=== PATIENT | male | born 1975 | race Caucasian/White ===

== ENCOUNTER 2016-08-09 10:21 | Emergency (ER) | payer OTHER ==
[~2016-08-09 10:21] MED LIST: BENTYL20 MG PO; FLEXERIL10 MG PO; NO MEDICATIONS; PHENERGAN DM; PHENERGAN PO; VOLTAREN75 MG PO
== END 2016-08-09 10:50 | disposition home or self-care (01) ==
LOC: SED 10:21
DX: M77.31 Calcaneal spur, right foot (principal); I10 Essential (primary) hypertension
CPT/HCPCS: 99282

== ENCOUNTER 2016-08-10 09:42 | Emergency (ER) | payer OTHER | END 2016-08-10 10:02 | disposition home or self-care (01) | LOC: SED 09:42 | DX: M77.31 Calcaneal spur, right foot (principal); I10 Essential (primary) hypertension; K57.92 Diverticulitis of intestine, part unspecified, without perforation or abscess without bleeding; Z98.890 Other specified postprocedural states | CPT/HCPCS: 99282 ==

== ENCOUNTER 2016-08-15 09:23 | Emergency (ER) | payer MEDICARE | END 2016-08-15 10:00 | disposition home or self-care (01) | LOC: SED 09:23 | DX: K52.9 Noninfective gastroenteritis and colitis, unspecified (principal); Z90.49 Acquired absence of other specified parts of digestive tract | CPT/HCPCS: 99282 ==

== ENCOUNTER 2016-08-16 09:41 | Emergency (ER) | payer OTHER | END 2016-08-16 10:05 | disposition home or self-care (01) | LOC: SED 09:41 | DX: K52.9 Noninfective gastroenteritis and colitis, unspecified (principal); Z90.49 Acquired absence of other specified parts of digestive tract | CPT/HCPCS: 99282 ==

== ENCOUNTER 2016-09-19 08:56 | Emergency (ER) | payer OTHER | END 2016-09-19 09:21 | disposition home or self-care (01) | LOC: SED 08:56 | DX: R19.7 Diarrhea, unspecified (principal); Z90.89 Acquired absence of other organs | CPT/HCPCS: 99283 ==

== ENCOUNTER 2016-12-15 11:24 | Emergency (ER) | payer OTHER ==
[~2016-12-15] VITALS: Ht 175.3 cm; Wt 97.5 kg
== END 2016-12-15 12:26 | disposition home or self-care (01) ==
LOC: SED 11:24
DX: R19.7 Diarrhea, unspecified (principal); R11.0 Nausea; I10 Essential (primary) hypertension
CPT/HCPCS: 99284